=== PATIENT | male | born 2000 | race Caucasian/White ===

== ENCOUNTER → 2021-02-15 10:49 | Outpatient (CLI) | payer BC, SELFPAY ==
--- NOTE | ~2021-02-15 | XR_ITS ---
EXAMINATION: XR hand LT min 3V EXAM DATE: 02/15/2021 11:38 INDICATION: Bilateral hand pain . No known recent injury. Arthritis assessment, diagnosed with RA 1 m onth ago, joint pain and stiffness in bilateral hands x 6months to 1 year. TECHNIQUE: Left hand frontal, lateral and oblique projections obtained and reviewed. Correlation is m norma to contralateral hand same date. FINDINGS: Left metacarpal bones are unremarkable. There are no acute fractures or dislocations ident ified. There is no subcutaneous gas. The soft tissue is unremarkable. There are no radiopaque for eign bodies. IMPRESSION: 1. Unremarkable XR hand LT min 3V exam. Reviewed, dictated and finalized at location A.
--- NOTE | ~2021-02-15 | XR_ITS ---
EXAMINATION: XR hand RT min 3V EXAM DATE: 02/15/2021 11:38 INDICATION: Bilateral hand pain . No known recent injury. Arthritis assessment, diagnosed with RA 1 m onth ago, joint pain and stiffness in bilateral hands x 6months to 1 year. TECHNIQUE: Right hand frontal, lateral and oblique projections obtained and reviewed. Correlation is made to contralateral hand same date. FINDINGS: Right metacarpal bones are unremarkable. The joint spaces are uniform, and symmetric to t he contralateral side. There are no bony erosions identified. There are no acute fractures or disloca tions identified. There is no subcutaneous gas. The soft tissue is unremarkable. There are no rad iopaque foreign bodies. IMPRESSION: 1. Unremarkable XR hand RT min 3V exam. Reviewed, dictated and finalized at location A.
== END ==
DX: M79.642 Pain in left hand (principal); M79.641 Pain in right hand
CPT/HCPCS: 73130